=== PATIENT | female | born 1965 | race African-American/Black ===

== ENCOUNTER 2021-05-03 13:02 | Emergency (ER) | payer OTHER ==
[2021-05-03 13:37] VITALS: BP 149/88; PULSE 77; TEMP 98; BMI 25.1
[2021-05-03] MEDS ORDERED: NAPROXEN 500 MG TABLET PO ONE (14:10)
[2021-05-03] MEDS ORDERED: NAPROXEN 500 MG TABLET ONE (14:11)
== END 2021-05-03 14:27 | disposition home or self-care (01) ==
LOC: JERFT 13:02
DX: S39.012A Strain of muscle, fascia and tendon of lower back, initial encounter (principal)
CPT/HCPCS: 99284-25

== ENCOUNTER 2023-06-06 17:26 | Emergency (ER) | payer OTHER ==
[2023-06-06 17:40] VITALS: BP 151/90; PULSE 90; RESP 18; TEMP 98.4; BMI 24.5
[2023-06-06] MEDS ORDERED: LIDOCAINE 5% TOPICAL PATCH TP ONE (18:51)
[2023-06-06] MEDS ORDERED: LIDOCAINE PATCH REMOVAL MC ONE (22:00)
== END 2023-06-06 19:00 | disposition home or self-care (01) ==
LOC: JER 17:26 → JERFT 17:26
DX: M25.512 Pain in left shoulder (principal); X50.0XXA Overexertion from strenuous movement or load, initial encounter
CPT/HCPCS: 99283-25